=== PATIENT | female | born 1955 | race African-American/Black ===

== ENCOUNTER → 2021-06-20 | Emergency (ER) | payer OTHER ==
[~2021-06-20] VITALS: Ht 160 cm; Wt 136.1 kg
[~2021-06-20] MED LIST: ELIQUIS2.5 MG PO; NORFLEX100MG PO; NORVASC2.5 M1 PO; ULTRAM50 MG PO
== END | disposition home or self-care (01) ==
LOC: ER 05:50
DX: M79.631 Pain in right forearm (principal)